=== PATIENT | male | born 1980 | race Caucasian/White ===

== ENCOUNTER 2016-11-20 02:23 | Emergency (ER) | payer BC ==
[~2016-11-20] VITALS: Ht 180.3 cm; Wt 81.6 kg
[2016-11-20 03:02] LABS: BILIRUBIN NEGATIVE (NEGATIVE); BLOOD 1+ (NEGATIVE); CLARITY CLEAR (CLEAR); COLOR YELLOW (YELLOW); GLUCOSE NEGATIVE (NEGATIVE); KETONE NEGATIVE (NEGATIVE); LEUKO ESTERASE NEGATIVE (NEGATIVE); NITRITE NEGATIVE (NEGATIVE); PROTEIN NEGATIVE (NEGATIVE); SPECIFIC GRAVITY <= 1.005 (1.005-1.030); UROBILINOGEN 0.2 E.U./dl (0.2-1.0)
[2016-11-20 03:15] LABS: URINE REFLEX COMMENT YES (NO); WBC 0-2 wbc/hpf (0-5)
[2016-11-20] MEDS ORDERED: ZITHROMAX250 MG PO (03:26)
[2016-11-20] MEDS ORDERED: PYRIDIUM200 M1 PO (03:30)
== END 2016-11-20 03:45 | disposition home or self-care (01) ==
LOC: ED 02:23
PROVIDERS: Emergency Medicine
DX: N39.0 Urinary tract infection, site not specified (principal); F17.200 Nicotine dependence, unspecified, uncomplicated